=== PATIENT | female | born 1975 | race Caucasian/White ===

== ENCOUNTER 2023-05-14 20:52 | Emergency (ER) | payer MEDICAID, OTHER ==
[~2023-05-14] VITALS: Ht 170.2 cm; Wt 81.6 kg
[2023-05-14 20:52] VITALS: BP 123/64; PULSE 69; RESP 16; TEMP 98.1; O2SAT 98
[~2023-05-14 20:52] MED LIST: CARI350T PO; LORA-476 PO; PAX20 PO; VIC; [UNRECOGNIZED DRUG - CODE] PO
--- NOTE | 2023-05-14 20:59 | NUR ---
Dr. Bass examining patient.
[2023-05-14] MEDS ORDERED: diphenhydrAMINE 50 MG/ML VIAL IM ONE (21:00)
--- NOTE | 2023-05-14 21:04 | NUR ---
PT [facility] BLS. TAKEN TO BED 2
--- NOTE | 2023-05-14 21:10 | NUR ---
47/f biba cc of left face numbness x 2 hrs. reports started to feel nausea after taking latuda. pt resting on bed. A/ox4 not in distress. on monitor. call light within reach. pt instructed on how to use call light. pt returned demonstration. all needs met at this time. bed locked in lowest position. side rails x2 for safety.
--- NOTE | 2023-05-14 23:45 | NUR ---
called [phone], [facility]. informed them that pt is for discahrge. states that they will be here to crab picker the pt.
[2023-05-15 00:20] VITALS: BP 120/64; PULSE 60; RESP 16; TEMP 98.1; O2SAT 98
--- NOTE | 2023-05-15 00:20 | NUR ---
Patient discharged with v/s stable. Written and verbal after care instructions given and explained. Patient verbalized understanding. Ambulatory with steady gait. All questions addressed prior to discharge. Advised to follow up with PMD.
== END 2023-05-15 00:20 | disposition home or self-care (01) ==
LOC: MED 20:52
DX: G25.71 Drug induced akathisia (principal); T43.595A Adverse effect of other antipsychotics and neuroleptics, initial encounter; F20.9 Schizophrenia, unspecified; Z79.899 Other long term (current) drug therapy; Z88.8 Allergy status to other drugs, medicaments and biological substances; Y92.89 Other specified places as the place of occurrence of the external cause
CPT/HCPCS: 96372; 99283; J1200

== ENCOUNTER 2023-07-27 19:45 | Emergency (ER) | payer OTHER, MEDICAID ==
[~2023-07-27] VITALS: Ht 170.2 cm; Wt 78.0 kg
[2023-07-27 19:50] VITALS: BP 110/70; PULSE 73; RESP 17; TEMP 97.6; O2SAT 97
[2023-07-27] MEDS ORDERED: OLANZapine 5 MG ODT SL ONE (21:05)
[2023-07-27 22:00] LABS: BASOPHILS # (AUTO) 0.1 K/uL (0.00-0.22); BASOPHILS % (AUTO) 0.7 % (0.0-2.0); EOSINOPHILS # (AUTO) 0.1 K/uL (0-0.4); EOSINOPHILS % (AUTO) 1.9 % (0.0-4.0); HEMATOCRIT 37.5 % (36-48); HEMOGLOBIN 12.6 g/dL (12.0-16.0); LYMPHOCYTES # (AUTO) 2.5 K/uL (2.5-16.5); MEAN CORPUSCULAR HEMOGLOBIN 29 pg (27-31); MEAN CORPUSCULAR HGB CONC 34 g/dL (33-37); MEAN CORPUSCULAR VOLUME 87.5 fL (80-94); MONOCYTES # (AUTO) 0.4 K/uL (0.8-1.0); MONOCYTES % (AUTO) 5.6 % (1.7-9.3); NEUTROPHILS # (AUTO) 4.6 K/uL (1.8-7.7); NEUTROPHILS % (AUTO) 59.8 % (42.2-75.2); PLATELET COUNT (AUTO) 208 K/uL (140-450); RED BLOOD CELL COUNT(AUTO) 4.29 MIL/uL (4.20-5.40); RED CELL DISTRIBUTION WIDTH 12.7 % (11.6-13.7); WHITE BLOOD COUNT (AUTO) 7.8 K/uL (4.8-10.8)
[2023-07-27 22:33] LABS: ANION GAP 11.9 (8-16); CALCIUM 9.4 mg/dL (8.5-10.1); CARBON DIOXIDE 26.5 mmol/L (21-32); CREATININE 0.8 mg/dL (0.6-1.3); POTASSIUM 3.4 mmol/L (3.5-5.1)
[2023-07-27 22:36] LABS: ACETAMINOPHEN < 0.5 ug/ml (10-30); ALCOHOL, BLOOD < 3 mg/dL (<10); SALICYLATE 3.2 mg/dL (2.8-20.0)
[2023-07-28 09:12] LABS: APPEARANCE,URINE CLEAR (CLEAR); BILIRUBIN,URINE NEGATIVE (NEGATIVE); BLOOD, URINE NEGATIVE (NEGATIVE); COLOR,URINE YELLOW (YELLOW); LEUKOCYTE ESTERASE ,URINE NEGATIVE (NEGATIVE); NITRITE, URINE NEGATIVE (NEGATIVE); PROTEIN,URINE TRACE (NEGATIVE); UGLUCOSE NEGATIVE (NEGATIVE); UROBILINOGEN,URINE 0.2 EU/dL (0.2 - 1)
[2023-07-28 09:30] LABS: AMPHETAMINE, URINE NEGATIVE ng/ml (NEG <=1000); BARBITURATE, URINE NEGATIVE ng/ml (NEG <=200); BENZODIAZEPINE, URINE NEGATIVE ng/mL (NEG <=200); CANNABINOID, URINE NEGATIVE ng/mL (NEG <=50); COCAINE, URINE NEGATIVE ng/mL (NEG <=300); OPIATE, URINE NEGATIVE ng/mL (NEG <=2000); PHENCYCLIDINE SCREEN,URINE NEGATIVE ng/mL (NEG <=25)
[2023-07-28 09:38] LABS: RBC,URINE 0-5 /HPF (0-5)
[2023-07-28 09:39] LABS: BACTERIA,URINE FEW /HPF (None Seen); MUCUS,URINE None Seen /LPF (None Seen); SQUAMOUS EPITHELIAL CELL,UR 4-10 (MOD) /LPF (0-3 (FEW)); TRICHOMONAS,URINE None Seen /HPF (None Seen); WBC,URINE 0-5 /HPF (0-5); WHITE BLOOD CELL CASTS,URINE None Seen /LPF (None Seen); YEAST,URINE None Seen /HPF (None Seen)
[2023-07-28] MEDS ORDERED: OLANZapine 5 MG ODT PO SCH (10:10)
[2023-07-28] MEDS ORDERED: ACETAMINOPHEN 325 MG TAB PO ONE (12:40)
[2023-07-28 16:10] VITALS: BP 104/59; PULSE 65; RESP 18; TEMP 97.7; O2SAT 95
[2023-07-28] MEDS ORDERED: [UNRECOGNIZED DRUG - CODE] PO (17:24)
[2023-07-28] MEDS ORDERED: HYDR-1093 PO (17:24)
[2023-07-28] MEDS ORDERED: ACETAMINOPHEN EXTRA STRENGTH 500 MG TAB PO ONE (17:30)
== END 2023-07-28 18:00 ==
LOC: MED 19:45
DX: R45.851 Suicidal ideations (principal); F20.9 Schizophrenia, unspecified; Z88.1 Allergy status to other antibiotic agents; Z88.8 Allergy status to other drugs, medicaments and biological substances; Z79.899 Other long term (current) drug therapy; Z20.822 Contact with and (suspected) exposure to COVID-19
CPT/HCPCS: 36415; 80048; 80305; 81001; 81025; 85025; 87426; 87635; 99285; G0480; G0482

== ENCOUNTER 2023-09-07 13:44 | Emergency (ER) | payer MEDICAID, OTHER ==
[~2023-09-07] VITALS: Ht 170.2 cm; Wt 81.2 kg
[~2023-09-07 13:44] MED LIST changes: -CARI350T PO; +HYDR-1093 PO; -LORA-476 PO; -PAX20 PO; -VIC; +[UNRECOGNIZED DRUG - CODE] PO
[2023-09-07 14:03] VITALS: BP 128/91; PULSE 97; RESP 18; TEMP 97.9; O2SAT 100
[2023-09-07 14:35] VITALS: O2SAT 100
[2023-09-07] MEDS ORDERED: LORazepam 2 MG/ML VIAL IM ONE (15:10)
[2023-09-07 15:11] LABS: BASOPHILS % (AUTO) 0.3 % (0.0-2.0); EOSINOPHILS % (AUTO) 0.2 % (0.0-4.0); HEMATOCRIT 38.4 % (36-48); HEMOGLOBIN 12.7 g/dL (12.0-16.0); LYMPHOCYTES # (AUTO) 1.4 K/uL (2.5-16.5); MEAN CORPUSCULAR HEMOGLOBIN 29 pg (27-31); MEAN CORPUSCULAR HGB CONC 33 g/dL (33-37); MEAN CORPUSCULAR VOLUME 88.2 fL (80-94); MONOCYTES # (AUTO) 0.5 K/uL (0.8-1.0); MONOCYTES % (AUTO) 5.8 % (1.7-9.3); NEUTROPHILS # (AUTO) 6.9 K/uL (1.8-7.7); NEUTROPHILS % (AUTO) 77.7 % (42.2-75.2); PLATELET COUNT (AUTO) 196 K/uL (140-450); RED BLOOD CELL COUNT(AUTO) 4.35 MIL/uL (4.20-5.40); RED CELL DISTRIBUTION WIDTH 13.4 % (11.6-13.7); WHITE BLOOD COUNT (AUTO) 8.9 K/uL (4.8-10.8)
[2023-09-07 15:31] LABS: AMPHETAMINE, URINE NEGATIVE ng/ml (NEG <=1000); BARBITURATE, URINE NEGATIVE ng/ml (NEG <=200); BENZODIAZEPINE, URINE NEGATIVE ng/mL (NEG <=200); CANNABINOID, URINE NEGATIVE ng/mL (NEG <=50); COCAINE, URINE NEGATIVE ng/mL (NEG <=300); PHENCYCLIDINE SCREEN,URINE NEGATIVE ng/mL (NEG <=25)
[2023-09-07 15:32] LABS: OPIATE, URINE NEGATIVE ng/mL (NEG <=2000)
[2023-09-07 15:34] LABS: ALANINE AMINOTRANSFERASE 10 U/L (12-78); ALBUMIN 4.1 g/dL (3.4-5.0); ALCOHOL, BLOOD < 3 mg/dL (<10); ALKALINE PHOSPHATASE 91 U/L (50-136); ANION GAP 10.9 (8-16); ASPARTATE AMINOTRANSFERASE 9 U/L (15-37); CALCIUM 9.1 mg/dL (8.5-10.1); CHLORIDE 105 mmol/L (98-107); CREATININE 0.6 mg/dL (0.6-1.3); GFR ARICAN-AMERICAN 137 mL/min (>90); GFR NON ARICAN-AMERICAN 113 mL/min (>90); GLUCOSE 111 mg/dL (74-106); POTASSIUM 3.9 mmol/L (3.5-5.1); SODIUM SERUM 140 mmol/L (136-145); TOTAL BILIRUBIN 0.1 mg/dL (0.0-1.0); TOTAL PROTEIN, SERUM 7.8 g/dL (6.4-8.2); UREA NITROGEN, BLOOD 11 mg/dL (7-18)
[2023-09-07 15:37] LABS: SALICYLATE 2.8 mg/dL (2.8-20.0)
[2023-09-07 17:40] VITALS: BP 124/70; PULSE 74; RESP 17; O2SAT 98
== END 2023-09-07 17:40 | disposition home or self-care (01) ==
LOC: MED 13:44
DX: R44.0 Auditory hallucinations (principal); Z79.899 Other long term (current) drug therapy
CPT/HCPCS: 36415; 80053; 80305; 81025; 85025; 93005; 96372; 99284; G0480; G0482; J2060; Q0163

== ENCOUNTER 2023-09-16 17:04 | Emergency (ER) | payer OTHER ==
[~2023-09-16] VITALS: Ht 170.2 cm; Wt 81.6 kg
[2023-09-16 17:29] VITALS: BP 102/72; PULSE 85; RESP 16; TEMP 97.4; O2SAT 95
[2023-09-16] MEDS ORDERED: ONDANSETRON 4 MG ODT PO ONE (18:35)
[2023-09-16] MEDS ORDERED: KETOROLAC 60 MG/2 ML VIAL IM ONE (18:35)
[2023-09-16] MEDS ORDERED: ONDA8TAB87 PO (18:49)
[2023-09-16] MEDS ORDERED: IBUP-2213 PO (18:49)
== END 2023-09-16 19:07 | disposition home or self-care (01) ==
LOC: MED 17:04
DX: R10.13 Epigastric pain (principal); R10.32 Left lower quadrant pain; R11.2 Nausea with vomiting, unspecified; R19.7 Diarrhea, unspecified; F17.200 Nicotine dependence, unspecified, uncomplicated; Z90.49 Acquired absence of other specified parts of digestive tract; Z98.890 Other specified postprocedural states; Z79.899 Other long term (current) drug therapy; Z88.8 Allergy status to other drugs, medicaments and biological substances
CPT/HCPCS: 96372; 99283; J1885; Q0162

== ENCOUNTER 2023-10-04 15:30 | Emergency (ER) | payer OTHER ==
[~2023-10-04] VITALS: Ht 170.2 cm; Wt 77.1 kg
[~2023-10-04 15:30] MED LIST changes: +IBUP-2213 PO; +ONDA8TAB87 PO
[2023-10-04 15:38] VITALS: BP 124/76; PULSE 95; RESP 16; TEMP 98; O2SAT 95
[2023-10-04] MEDS ORDERED: LORazepam 1 MG TAB PO ONE (16:00)
[2023-10-04] MEDS ORDERED: SERT50TA PO (16:10)
[2023-10-04] MEDS ORDERED: ACYCLOVIR 200 MG CAP PO ONE (16:45)
[2023-10-04] MEDS ORDERED: VALA1TAB2 PO (16:46)
[2023-10-04] MEDS ORDERED: TRAZ-343 PO (16:46)
[2023-10-04] MEDS ORDERED: ATA25 PO (16:46)
[2023-10-04] MEDS ORDERED: BENZ7GEL5 MM (16:46)
== END 2023-10-04 16:34 | disposition home or self-care (01) ==
LOC: MED 15:30
DX: F41.9 Anxiety disorder, unspecified (principal); Z59.00 Homelessness unspecified; B00.89 Other herpesviral infection; Z76.0 Encounter for issue of repeat prescription; F32.9 Major depressive disorder, single episode, unspecified; F20.9 Schizophrenia, unspecified; Z98.890 Other specified postprocedural states; Z79.899 Other long term (current) drug therapy; Z79.1 Long term (current) use of non-steroidal anti-inflammatories (NSAID); Z88.8 Allergy status to other drugs, medicaments and biological substances
CPT/HCPCS: 99283

== ENCOUNTER 2023-10-05 12:22 | Inpatient (IN) | payer OTHER, MEDICAID ==
[~2023-10-05] VITALS: Ht 162.6 cm; Wt 72.6 kg
[~2023-10-05 12:22] MED LIST changes: +ATA25 PO; +BENZ7GEL5 MM; +SERT50TA PO; +TRAZ-343 PO; +VALA1TAB2 PO
[2023-10-05 12:54] VITALS: BP 117/68; PULSE 89; RESP 18; TEMP 97; O2SAT 98
[2023-10-05 13:24] LABS: BASOPHILS # (AUTO) 0.1 K/uL (0.00-0.22); BASOPHILS % (AUTO) 0.6 % (0.0-2.0); EOSINOPHILS # (AUTO) 0.2 K/uL (0-0.4); EOSINOPHILS % (AUTO) 1.6 % (0.0-4.0); HEMATOCRIT 39.6 % (36-48); HEMOGLOBIN 13.2 g/dL (12.0-16.0); LYMPHOCYTES # (AUTO) 2.2 K/uL (2.5-16.5); LYMPHOCYTES % (AUTO) 20.5 % (20.5-51.1); MEAN CORPUSCULAR HEMOGLOBIN 29 pg (27-31); MEAN CORPUSCULAR HGB CONC 33 g/dL (33-37); MEAN CORPUSCULAR VOLUME 87.3 fL (80-94); MONOCYTES # (AUTO) 0.8 K/uL (0.8-1.0); MONOCYTES % (AUTO) 7.8 % (1.7-9.3); NEUTROPHILS # (AUTO) 7.4 K/uL (1.8-7.7); NEUTROPHILS % (AUTO) 69.5 % (42.2-75.2); PLATELET COUNT (AUTO) 295 K/uL (140-450); RED BLOOD CELL COUNT(AUTO) 4.53 MIL/uL (4.20-5.40); RED CELL DISTRIBUTION WIDTH 13.6 % (11.6-13.7); WHITE BLOOD COUNT (AUTO) 10.7 K/uL (4.8-10.8)
[2023-10-05 13:33] LABS: ANION GAP 17.2 (8-16); CALCIUM 9.2 mg/dL (8.5-10.1); CARBON DIOXIDE 20.7 mmol/L (21-32); CREATININE 0.8 mg/dL (0.6-1.3)
[2023-10-05 13:34] LABS: POTASSIUM 2.9 mmol/L (3.5-5.1)
[2023-10-05 13:36] LABS: ALCOHOL, BLOOD < 3 mg/dL (<10); SALICYLATE 4.3 mg/dL (2.8-20.0)
[2023-10-05 13:37] LABS: ACETAMINOPHEN < 0.5 ug/ml (10-30)
[2023-10-05] MEDS ORDERED: POTASSIUM CHLORIDE 10 MEQ TABER PO ONE (13:40)
[2023-10-05] MEDS ORDERED: KETOROLAC 30 MG/ML VIAL IVP ONE (13:40)
[2023-10-05] MEDS ORDERED: NACL 0.9% 1,000 ML IV ONE (13:40)
[2023-10-05] MEDS ORDERED: MORPHINE SULFATE 4 MG/ML SYR IVP PRN (14:10)
[2023-10-05] MEDS ORDERED: ACETAMINOPHEN 325 MG TAB PO PRN ×2 (14:10→14:40)
[2023-10-05] MEDS ORDERED: HYDROcodone/APAP 5/325 MG 1 TAB TAB PO PRN (14:10)
[2023-10-05 14:17] LABS: APPEARANCE,URINE CLEAR (CLEAR); BILIRUBIN,URINE 1+ (NEGATIVE); BLOOD, URINE TRACE-I (NEGATIVE); COLOR,URINE YELLOW (YELLOW); LEUKOCYTE ESTERASE ,URINE NEGATIVE (NEGATIVE); NITRITE, URINE NEGATIVE (NEGATIVE); PROTEIN,URINE 1+ (NEGATIVE); UGLUCOSE NEGATIVE (NEGATIVE); UROBILINOGEN,URINE 0.2 EU/dL (0.2 - 1)
[2023-10-05] MEDS ORDERED: MAG SULF 2000 MG/WATER PREMIX 50 ML IV PRN (14:40)
[2023-10-05] MEDS ORDERED: DOCUSATE SODIUM 100 MG GELCAP PO PRN (14:40)
[2023-10-05] MEDS ORDERED: ONDANSETRON 4 MG/2 ML VIAL IVP PRN (14:40)
[2023-10-05] MEDS ORDERED: ZOLPIDEM 10 MG TAB PO PRN (14:40)
[2023-10-05 15:09] LABS: AMPHETAMINE, URINE POSITIVE ng/ml (NEG <=1000); BARBITURATE, URINE NEGATIVE ng/ml (NEG <=200); BENZODIAZEPINE, URINE POSITIVE ng/mL (NEG <=200); CANNABINOID, URINE NEGATIVE ng/mL (NEG <=50); COCAINE, URINE NEGATIVE ng/mL (NEG <=300); OPIATE, URINE NEGATIVE ng/mL (NEG <=2000); PHENCYCLIDINE SCREEN,URINE NEGATIVE ng/mL (NEG <=25)
[2023-10-05 16:02] LABS: BACTERIA,URINE FEW /HPF (None Seen); RBC,URINE NONE SEEN /HPF (0-5); SQUAMOUS EPITHELIAL CELL,UR 0-3 (FEW) /LPF (0-3 (FEW)); WBC,URINE 0-5 /HPF (0-5)
[2023-10-05] MEDS ORDERED: OLANZapine 5 MG ODT PO SCH (21:00)
[2023-10-05] MEDS ORDERED: traZODone 50 MG TAB PO SCH (21:00)
[2023-10-05] MEDS ORDERED: DICYCLOMINE HCL LIQUID 10 MG/5 ML UDC ONE (22:23)
[2023-10-05] MEDS ORDERED: ALUMINUM HYD/MAG/SIMETHICONE 30 ML UDC ONE (22:23)
[2023-10-05] MEDS ORDERED: DICYCLOMINE HCL LIQUID 20 MG, ALUMINUM HYD/MAG/SIMETHICONE 30 ML, LIDOCAINE VISCOUS 2% ... PO ONE ×3 (22:30)
[2023-10-05] MEDS ORDERED: OLANZapine 5 MG TAB ONE (23:44)
[2023-10-05] MEDS: busPIRone 5 MG TAB PO SCH (23:51)
[2023-10-05] MEDS: POTASSIUM CHLORIDE 10 MEQ TABER PO SCH (23:51)
[2023-10-05] MEDS: OLANZapine 5 MG ODT PO SCH (23:52)
[2023-10-06] MEDS ORDERED: SERTRALINE 50 MG TAB PO SCH ×2 (09:00)
[2023-10-06 09:44] LABS: BASOPHILS # (AUTO) 0.1 K/uL (0.00-0.22); EOSINOPHILS # (AUTO) 0.1 K/uL (0-0.4); EOSINOPHILS % (AUTO) 2.1 % (0.0-4.0); HEMATOCRIT 40.9 % (36-48); HEMOGLOBIN 13.5 g/dL (12.0-16.0); LYMPHOCYTES # (AUTO) 2.1 K/uL (2.5-16.5); LYMPHOCYTES % (AUTO) 29.4 % (20.5-51.1); MEAN CORPUSCULAR HEMOGLOBIN 29 pg (27-31); MEAN CORPUSCULAR HGB CONC 33 g/dL (33-37); MONOCYTES # (AUTO) 0.6 K/uL (0.8-1.0); MONOCYTES % (AUTO) 8.6 % (1.7-9.3); NEUTROPHILS # (AUTO) 4.2 K/uL (1.8-7.7); NEUTROPHILS % (AUTO) 58.9 % (42.2-75.2); PLATELET COUNT (AUTO) 270 K/uL (140-450); RED BLOOD CELL COUNT(AUTO) 4.65 MIL/uL (4.20-5.40); RED CELL DISTRIBUTION WIDTH 13.7 % (11.6-13.7); WHITE BLOOD COUNT (AUTO) 7.1 K/uL (4.8-10.8)
[2023-10-06 10:00] LABS: ALBUMIN 3.5 g/dL (3.4-5.0); ANION GAP 16.4 (8-16); CARBON DIOXIDE 21.5 mmol/L (21-32); CREATININE 0.7 mg/dL (0.6-1.3); POTASSIUM 3.9 mmol/L (3.5-5.1); TOTAL BILIRUBIN 0.5 mg/dL (0.0-1.0); TOTAL PROTEIN, SERUM 7.7 g/dL (6.4-8.2)
[2023-10-06] MEDS: busPIRone 5 MG TAB PO SCH ×3 (10:09→17:30)
[2023-10-06] MEDS ORDERED: POTASSIUM CHLORIDE 10 MEQ TABER PO ONE (10:11)
[2023-10-06] MEDS: POTASSIUM CHLORIDE 10 MEQ TABER PO SCH (10:20)
[2023-10-06] MEDS: OLANZapine 5 MG ODT PO SCH ×2 (13:00→21:06)
[2023-10-06 22:40] VITALS: BP 119/76; PULSE 70; RESP 16; TEMP 98; O2SAT 98
[2023-10-07 02:21] VITALS: O2SAT 98
== END 2023-10-07 03:17 | DRG 641 ==
LOC: MED 12:22 → MMU 14:12
PROVIDERS: ADMIT Family Medicine; ATTEND Family Medicine
DX: E87.6 Hypokalemia (principal); R45.851 Suicidal ideations; F20.9 Schizophrenia, unspecified; Z20.822 Contact with and (suspected) exposure to COVID-19; Z88.8 Allergy status to other drugs, medicaments and biological substances; Z79.899 Other long term (current) drug therapy; Z90.49 Acquired absence of other specified parts of digestive tract
CPT/HCPCS: 36415; 71045; 80048; 80053; 80305; 81001; 84132; 85025; 87635-QW; 99285; G0480; G0482; J1885

== ENCOUNTER 2023-12-12 16:46 | Emergency (ER) | payer OTHER ==
[~2023-12-12] VITALS: Ht 170.2 cm; Wt 83.9 kg
[2023-12-12 17:08] VITALS: BP 128/81; PULSE 95; RESP 16; TEMP 97.4; O2SAT 100
[2023-12-12 17:35] VITALS: BP 128/81; PULSE 95; RESP 16; TEMP 97.4; O2SAT 100
[2023-12-12] MEDS ORDERED: OLAN2.5T1 PO (18:05)
[2023-12-12] MEDS: OLANZapine 5 MG ODT SL ONE (18:09)
== END 2023-12-12 18:40 | disposition home or self-care (01) ==
LOC: MED 16:46
DX: F41.9 Anxiety disorder, unspecified (principal); F32.A Depression, unspecified; F20.9 Schizophrenia, unspecified; I25.10 Atherosclerotic heart disease of native coronary artery without angina pectoris; Z88.8 Allergy status to other drugs, medicaments and biological substances; Z79.899 Other long term (current) drug therapy
CPT/HCPCS: 81025; 99283

== ENCOUNTER 2023-12-21 16:15 | Emergency (ER) | payer OTHER ==
[~2023-12-21] VITALS: Ht 170.2 cm; Wt 83.0 kg
[~2023-12-21 16:15] MED LIST changes: +OLAN2.5T1 PO
[2023-12-21 16:20] VITALS: BP 146/73; PULSE 106; RESP 20; TEMP 98.3; O2SAT 99
[2023-12-21 17:17] VITALS: O2SAT 99
[2023-12-21 17:22] VITALS: BP 144/71; PULSE 98; RESP 18; TEMP 98.3; O2SAT 99
[2023-12-21] MEDS: OLANZapine 10 MG VIAL IM ONE (17:41)
[2023-12-21] MEDS ORDERED: OLAN5TAB1 PO (19:21)
== END 2023-12-21 19:32 | disposition home or self-care (01) ==
LOC: MED 16:15
DX: F20.9 Schizophrenia, unspecified (principal); F41.9 Anxiety disorder, unspecified; Z79.899 Other long term (current) drug therapy; Z88.8 Allergy status to other drugs, medicaments and biological substances
CPT/HCPCS: 96372; 99283; J3490